=== PATIENT | female | born 1985 | race Caucasian/White ===

== ENCOUNTER 2020-04-11 12:53 | Emergency (ER) | payer OTHER, SELFPAY ==
[2020-04-11] VITALS (14 sets, daily range): BP systolic 94–128; BP diastolic 50–66; PULSE 47–92; RESP 12–20; TEMP 36.7; O2SAT 97–98; BMI 43.2
--- NOTE | 2020-04-11 13:06 | ED.ARRPALP ---
HPI - Arrhythmia/Palpitations <DANIEL Crews - Last Filed: 04/11/20 17:42> General Chief Complaint: Arrhythmia/Palpitations Stated Complaint: cough,heart palpitations, slight SOB past week Time Seen by Provider: 04/11/20 12:56 History of Present Illness HPI narrative: 34yo female presents to the emergency department today complaining of palpitations for the past week. She states she made an appointment at the [facility] for this reason. She reports that it lab test and EKG but she has not heard any results. She was told that if the palpitations continue she should be seen in the emergency department. Patient states she has felt constant palpitations the past week and feels exhausted. She does feel short of breath with these palpitations. Patient did developed a dry cough today. Patient denies any chest pain, fevers, chills, nausea, vomiting, diarrhea, dizziness, or any other concerns. Patient states she has currently breast-feeding, her is [id number]. Patient denies taking any blood thinners or control/hormone pills. Patient denies any history of blood clots. Related Data Previous Rx's Medication Instructions Recorded metoprolol succinate 12.5 mg PO DAILY #30 tab 04/11/20 Allergies Allergy/AdvReac Type Severity Reaction Status Date / Time amoxicillin Allergy Verified 04/11/20 13:06 Penicillins Allergy Verified 04/11/20 13:06 Review of Systems <DANIEL Crews - Last Filed: 04/11/20 17:42> Review of Systems Narrative: REVIEW OF SYSTEMS: GENERAL: Denies fever or chills. HENT: No head trauma, hearing loss or sore throat. EYES: No vision changes. CARDIOVASCULAR: No chest pain or syncope. Reports palpitations, see HPI. RESPIRATORY: No shortness of breath or cough. GASTROINTESTINAL: No nausea, vomiting, diarrhea, or constipation. GENITOURINARY: No flank pain or dysuria. MUSCULOSKELETAL: No pain, weakness, or deformities. INTEGUMENTARY: No rash, lesions, or pruritus. NEURO: No numbness, tingling, memory loss, or confusion. PSYCH: No behavior or mood changes. Patient History <DANIEL Crews - Last Filed: 04/11/20 17:42> Medical History No significant medical problems (Acute) Social History Smoking Status: Never smoker Smoking Status: Never smoker Exam <DANIEL Crews - Last Filed: 04/11/20 17:42> Initial Vital Signs Initial Vital Signs: Vital Signs Temperature 98.1 F 04/11/20 13:00 Pulse Rate 92 H 04/11/20 13:00 Respiratory Rate 04/11/20 13:00 Blood Pressure 128/66 04/11/20 13:00 Pulse Oximetry 97 04/11/20 13:00 PHYSICAL EXAMINATION: GENERAL: Well groomed, alert, and cooperative. Answers questions promptly and appropriately. Vital signs noted. HENT: Normocephalic, atraumatic. Ear canals patent. Oral mucosa is pink and moist. EYES: Conjunctiva pink, sclera white, no periorbital swelling. CHEST: Normal to inspection and without deformities. CARDIOVASCULAR: S1 and S2 sounds normal. Regular rate and rhythm, no murmurs, clicks, or bruits. No pedal edema. RESPIRATORY: Normal respiratory rate, trachea midline, airway patent. No stridor, nasal flaring or accessory muscle use. Lungs are clear in all reyez without wheeze, rhonchi, or crackles. No cough observed. GASTROINTESTINAL: Bowel sounds normoactive. Abdomen is soft and non-tender. No organomegaly. MUSCULOSKELETAL: Normal gait and coordination. Equal tone and mass bilaterally. EXTREMITIES: CMS intact. Moves all extremities. SKIN: Warm, dry, soft, appropriate color for ethnicity. No lesions, rashes, or wounds. NEURO: Alert and Oriented X 3. Good coordination. No ataxia, or sensory deficits, or cognitive issues. PSYCH: Appropriate affect and mood. <Jessy Anderson DO - Last Filed: 04/12/20 06:52> Initial Vital Signs Initial Vital Signs: Vital Signs Temperature 98.1 F 04/11/20 13:00 Pulse Rate 92 H 04/11/20 13:00 Respiratory Rate 04/11/20 13:00 Blood Pressure 128/66 04/11/20 13:00 Pulse Oximetry 97 04/11/20 13:00 Scores <DANIEL Crews - Last Filed: 04/11/20 17:42> HEART Score Heart Score history: Slightly Suspicious Heart Score EKG: Normal Heart Score Age: < 45 years old Heart Score risk factors: No known risk factors Heart Score troponin: < or = to normal limit Heart Score Total: 0 PERC Score Age greater than or equal to 50 years: No Heart rate greater than or equal to 100 bpm: Yes Room Air O2 Sat less than 95%: No Unilateral leg swelling: No Recent trauma or surgery: No Hemoptysis: No Prior PE or DVT: No Hormone Use: No Total PERC Score: 1 Wells' Criteria for PE Clinical signs and symptoms of DVT: No PE is #1 Dx or equally likely: No Heart rate > 100: Yes Immobilization at least 3 days or surg in previous 4 weeks: No History of PE or DVT: No Hemoptysis: No Malignancy w/Treatment within 6 months or palliative: No Wells' PE Score total: 1.5 Course <AllisonDANIEL Mclain - Last Filed: 04/11/20 17:42> Course Course Narrative: 1420: Upon re-evaluation, patient reported feeling less palpitations, states she occasionally feels lightheaded at this time. Patient has notable decreased PVCs on monitor, appears to have a PVC every 8-10 beats versus bigeminy initially seen on EKG. Metoprolol 2.5mg ordered to see if this will affect symptoms, fluids continued. 1534: Patient reported significantly improved symptoms, palpitations are less significant and less frequent. Dizziness has resolved. Orders Ordered: Discontinued Medications Aspirin (Aspirin Chew) 324 mg PO NOW ONE Stop: 04/11/20 13:06 Last Admin: 04/11/20 13:41 Dose: 324 mg Documented by: SYLVESTER Sodium Chloride (Normal Saline 0.9%) 1,000 mls @ 1,000 mls/hr IV BOLUS ONE Stop: 04/11/20 14:04 Last Infusion: 04/11/20 14:43 Dose: 0 mls/hr Documented by: Admin: 04/11/20 13:40 Dose: 1,000 mls/hr Documented by: SYLVESTER Metoprolol Tartrate (Lopressor) 2.5 mg IV NOW ONE Stop: 04/11/20 14:26 Last Admin: 04/11/20 15:07 Dose: 2.5 mg Documented by: SYLVESTER Reevaluation(s) Reevaluation #1: Patient staffed with Dr. Anderson, discussed test, test results, plan of care. Vital Signs Vital signs: Vital Signs - 8 hr 04/11/20 13:00 04/11/20 13:01 04/11/20 13:02 Temperature 98.1 F Pulse Rate 92 H 47 L 56 L Respiratory Rate 20 Blood Pressure 128/66 128/66 Pulse Oximetry 97 98 98 04/11/20 13:30 04/11/20 13:31 04/11/20 14:00 Temperature Pulse Rate 79 81 74 Respiratory Rate 18 17 16 Blood Pressure 109/57 L Pulse Oximetry 97 97 97 04/11/20 14:01 04/11/20 14:24 04/11/20 14:30 Temperature Pulse Rate 76 79 72 Respiratory Rate 16 20 15 Blood Pressure 99/57 L 116/66 Pulse Oximetry 97 98 97 04/11/20 14:31 04/11/20 15:00 04/11/20 15:07 Temperature Pulse Rate 74 74 76 Respiratory Rate 16 12 14 Blood Pressure 94/50 L 99/59 L 102/59 L Pulse Oximetry 97 98 98 04/11/20 15:30 04/11/20 15:31 Temperature Pulse Rate 65 72 Respiratory Rate 12 14 Blood Pressure 96/54 L Pulse Oximetry 97 97 <Jessy Anderson, DO - Last Filed: 04/12/20 06:52> Orders Ordered: Discontinued Medications Aspirin (Aspirin Chew) 324 mg PO NOW ONE Stop: 04/11/20 13:06 Last Admin: 04/11/20 13:41 Dose: 324 mg Documented by: SYLVESTER Sodium Chloride (Normal Saline 0.9%) 1,000 mls @ 1,000 mls/hr IV BOLUS ONE Stop: 04/11/20 14:04 Last Infusion: 04/11/20 14:43 Dose: 0 mls/hr Documented by: Admin: 04/11/20 13:40 Dose: 1,000 mls/hr Documented by: SYLVESTER Metoprolol Tartrate (Lopressor) 2.5 mg IV NOW ONE Stop: 04/11/20 14:26 Last Admin: 04/11/20 15:07 Dose: 2.5 mg Documented by: SYLVESTER Vital Signs Vital signs: Vital Signs - 8 hr 04/11/20 13:00 04/11/20 13:01 04/11/20 13:02 Temperature 98.1 F Pulse Rate 92 H 47 L 56 L Respiratory Rate 20 Blood Pressure 128/66 128/66 Pulse Oximetry 97 98 98 04/11/20 13:30 04/11/20 13:31 04/11/20 14:00 Temperature Pulse Rate 79 81 74 Respiratory Rate 18 17 16 Blood Pressure 109/57 L Pulse Oximetry 97 97 97 04/11/20 14:01 04/11/20 14:24 04/11/20 14:30 Temperature Pulse Rate 76 79 72 Respiratory Rate 16 20 15 Blood Pressure 99/57 L 116/66 Pulse Oximetry 97 98 97 04/11/20 14:31 04/11/20 15:00 04/11/20 15:07 Temperature Pulse Rate 74 74 76 Respiratory Rate 16 12 14 Blood Pressure 94/50 L 99/59 L 102/59 L Pulse Oximetry 97 98 98 04/11/20 15:30 04/11/20 15:31 Temperature Pulse Rate 65 72 Respiratory Rate 12 14 Blood Pressure 96/54 L Pulse Oximetry 97 97 MDM - Arrhythmia/Palpitations <DANIEL Crews - Last Filed: 04/11/20 17:42> Medical Records Attestation: I reviewed the patient's medical records. Lab Data Attestation: I reviewed the patient's lab results. Result diagrams: 04/11/20 13:05 04/11/20 13:05 Labs: Lab Results 04/11/20 04/11/20 04/11/20 Range/Units 13:05 13:05 13:05 WBC 8.1 (4.5-11.0) X10^3/uL RBC 4.89 (4.0-5.2) X10^6/uL Hgb 13.9 (12.0-16.0) g/dL Hct 41.1 (36-46) % MCV 84.1 (80-100) fL MCH 28.5 (26-34) PG MCHC 33.9 (30-36) % RDW 14.3 (11.6-14.8) % Plt Count 406 H (150-400) X10^3/uL Neut % (Auto) 58.8 (50-75) % Lymph % (Auto) 32.2 (25-40) % Cross % (Auto) 5.6 (3-14) % Eos % (Auto) 3.2 (2-4) % Baso % (Auto) 0.2 (0-2) % Neut # (Auto) 4700 (2671-1975) /uL Lymph # (Auto) 2600 (2252-2488) /uL Cross # (Auto) 500 (0-900) /uL Eos # (Auto) 300 (0-450) /uL Baso # (Auto) 0 (0-100) /uL D-Dimer < 200 (<230) ng/mL Sodium 136 L (137-145) mmol/L Potassium 4.5 (3.4-5.1) mmol/L Chloride 104 (98-107) mmol/L Carbon Dioxide 24 (22-32) mmol/L BUN 14 (7-17) mg/dL Creatinine 0.58 (0.52-1.04) mg/dL Estimated GFR > 60.0 (>60) mL/min BUN/Creatinine Ratio 24.1 H (6-22) Glucose 105 H (70-100) mg/dL Calcium 9.4 (8.4-10.2) mg/dL Total Bilirubin 0.5 (0.2-1.3) mg/dL AST 26 (14-36) IU/L ALT 24 (<35) IU/L Alkaline Phosphatase 72 (38-126) U/L Total Creatine Kinase 54 (30-135) U/L CK-MB (CK-2) TNP CK-MB (CK-2) Rel Index TNP Troponin I < 0.012 (0.01-0.034) ng/mL Total Protein 8.1 (6.3-8.2) g/dL Albumin 4.5 (3.5-5.0) g/dL Globulin 3.6 (1.7-4.1) g/dL Albumin/Globulin Ratio 1.3 (1.0-2.8) Lipase 29 (23-300) U/L TSH (0.47-4.68) uIU/mL COVID-19 PCR (Negative) 04/11/20 04/11/20 Range/Units 13:13 14:42 WBC (4.5-11.0) X10^3/uL RBC (4.0-5.2) X10^6/uL Hgb (12.0-16.0) g/dL Hct (36-46) % MCV (80-100) fL MCH (26-34) PG MCHC (30-36) % RDW (11.6-14.8) % Plt Count (150-400) X10^3/uL Neut % (Auto) (50-75) % Lymph % (Auto) (25-40) % Cross % (Auto) (3-14) % Eos % (Auto) (2-4) % Baso % (Auto) (0-2) % Neut # (Auto) (6214-6224) /uL Lymph # (Auto) (4018-2270) /uL Cross # (Auto) (0-900) /uL Eos # (Auto) (0-450) /uL Baso # (Auto) (0-100) /uL D-Dimer (<230) ng/mL Sodium (137-145) mmol/L Potassium (3.4-5.1) mmol/L Chloride (98-107) mmol/L Carbon Dioxide (22-32) mmol/L BUN (7-17) mg/dL Creatinine (0.52-1.04) mg/dL Estimated GFR (>60) mL/min BUN/Creatinine Ratio (6-22) Glucose (70-100) mg/dL Calcium (8.4-10.2) mg/dL Total Bilirubin (0.2-1.3) mg/dL AST (14-36) IU/L ALT (<35) IU/L Alkaline Phosphatase (38-126) U/L Total Creatine Kinase (30-135) U/L CK-MB (CK-2) CK-MB (CK-2) Rel Index Troponin I (0.01-0.034) ng/mL Total Protein (6.3-8.2) g/dL Albumin (3.5-5.0) g/dL Globulin (1.7-4.1) g/dL Albumin/Globulin Ratio (1.0-2.8) Lipase (23-300) U/L TSH 1.87 (0.47-4.68) uIU/mL COVID-19 PCR Negative (Negative) Imaging Data Chest x-ray: Radiologist's Impresson: [address] [address] XRay Report Signed Patient: Vale Allen LMR#: [id number] : 1985Acct:[id number] Age/Sex: 34 / FDate of Service: 04/11/20 Loc: ED Accession Number: [id number] Procedure: XR chest 1V Ordering Provider: Allison Vergara PROCEDURE: XR CHEST 1V INDICATIONS: Palpitations TECHNIQUE: One view of the chest was acquired. COMPARISON: None. FINDINGS: Surgical changes and devices: EKG leads project over the chest. Lungs and pleura: Lungs are clear. No pleural effusions or pneumothorax. Mediastinum: Mediastinal contours appear normal. Heart size is normal. Bones and chest wall: No suspicious bony lesions. Overlying soft tissues appear unremarkable. IMPRESSION: No acute cardiopulmonary process demonstrated radiographically. Dictated by: Eddie Reyes M.D. on 04/11/2020 at 13:43 Approved by: Eddie Reyes M.D. on 04/11/2020 at 13:43 ECG Data Interpretation: 1307: Sinus rhythm, rate 79, UT interval 163, QTC 410. Frequent PVCs initially bigeminy, then a PVC every 4-[address] elevation or ST depression. No T-wave inversion. EKG also viewed by Dr. Anderson. [facility] Narrative Medical decision making narrative: 34-year-old female presents to the emergency department for palpitations for the past week. She was recently seen at her primary care provider's office and had labs drawn but were not informed about results. I suspect patient's symptoms are most likely caused by frequent PVCs is seen on EKG and heart monitor. 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 Patient's symptoms significantly improved and episodes of PVCs decreased after administration of 2.5 mg of metoprolol and 1 L of normal saline. Less likely ACS due to lack of symptoms such as chest pain, EKG without acute changes such as ST elevation or ST depression, troponin within normal limits. Low risk factors. Heart score of 0. Less likely PE due to low well's criteria score, negative D-dimer. No history of hormonal therapy or history of PEs or DVTs. Differential also includes COVID-19, although less likely due to appearance of frequent PVCs which is the most likely explanation of palpitations. However, given patient's cough and shortness of breath she was swabbed for COVID-19 and instructed to remain in quarantine until test results have returned. Less likely acute infection due to clear chest x-ray, lack of fevers, no suspicious source of infection, and lack of other concerning symptoms such as crackles or wheezes. Discussed with patient that metoprolol as approved to use with . Patient was discharged with low-dose oral metoprolol. In the emergency department, patient's blood pressure was on the lower side of normal, however, she tolerated the medication well. She was encouraged to follow up with her primary care provider scheduled tomorrow. Strict return precautions given for new or worsening symptoms. Patient agreed to plan of care verbalized understanding. <Jessy Anderson, - Last Filed: 04/12/20 06:52> Lab Data Labs: Lab Results 04/11/20 04/11/20 04/11/20 Range/Units 13:05 13:05 13:05 WBC 8.1 (4.5-11.0) X10^3/uL RBC 4.89 (4.0-5.2) X10^6/uL Hgb 13.9 (12.0-16.0) g/dL Hct 41.1 (36-46) % MCV 84.1 (80-100) fL MCH 28.5 (26-34) PG MCHC 33.9 (30-36) % RDW 14.3 (11.6-14.8) % Plt Count 406 H (150-400) X10^3/uL Neut % (Auto) 58.8 (50-75) % Lymph % (Auto) 32.2 (25-40) % Cross % (Auto) 5.6 (3-14) % Eos % (Auto) 3.2 (2-4) % Baso % (Auto) 0.2 (0-2) % Neut # (Auto) 4700 (8026-5642) /uL Lymph # (Auto) 2600 (7395-9503) /uL Cross # (Auto) 500 (0-900) /uL Eos # (Auto) 300 (0-450) /uL Baso # (Auto) 0 (0-100) /uL D-Dimer < 200 (<230) ng/mL Sodium 136 L (137-145) mmol/L Potassium 4.5 (3.4-5.1) mmol/L Chloride 104 (98-107) mmol/L Carbon Dioxide 24 (22-32) mmol/L BUN 14 (7-17) mg/dL Creatinine 0.58 (0.52-1.04) mg/dL Estimated GFR > 60.0 (>60) mL/min BUN/Creatinine Ratio 24.1 H (6-22) Glucose 105 H (70-100) mg/dL Calcium 9.4 (8.4-10.2) mg/dL Total Bilirubin 0.5 (0.2-1.3) mg/dL AST 26 (14-36) IU/L ALT 24 (<35) IU/L Alkaline Phosphatase 72 (38-126) U/L Total Creatine Kinase 54 (30-135) U/L CK-MB (CK-2) TNP CK-MB (CK-2) Rel Index TNP Troponin I < 0.012 (0.01-0.034) ng/mL Total Protein 8.1 (6.3-8.2) g/dL Albumin 4.5 (3.5-5.0) g/dL Globulin 3.6 (1.7-4.1) g/dL Albumin/Globulin Ratio 1.3 (1.0-2.8) Lipase 29 (23-300) U/L TSH (0.47-4.68) uIU/mL COVID-19 PCR (Negative) 04/11/20 04/11/20 Range/Units 13:13 14:42 WBC (4.5-11.0) X10^3/uL RBC (4.0-5.2) X10^6/uL Hgb (12.0-16.0) g/dL Hct (36-46) % MCV (80-100) fL MCH (26-34) PG MCHC (30-36) % RDW (11.6-14.8) % Plt Count (150-400) X10^3/uL Neut % (Auto) (50-75) % Lymph % (Auto) (25-40) % Cross % (Auto) (3-14) % Eos % (Auto) (2-4) % Baso % (Auto) (0-2) % Neut # (Auto) (0245-2388) /uL Lymph # (Auto) (1247-2147) /uL Cross # (Auto) (0-900) /uL Eos # (Auto) (0-450) /uL Baso # (Auto) (0-100) /uL D-Dimer (<230) ng/mL Sodium (137-145) mmol/L Potassium (3.4-5.1) mmol/L Chloride (98-107) mmol/L Carbon Dioxide (22-32) mmol/L BUN (7-17) mg/dL Creatinine (0.52-1.04) mg/dL Estimated GFR (>60) mL/min BUN/Creatinine Ratio (6-22) Glucose (70-100) mg/dL Calcium (8.4-10.2) mg/dL Total Bilirubin (0.2-1.3) mg/dL AST (14-36) IU/L ALT (<35) IU/L Alkaline Phosphatase (38-126) U/L Total Creatine Kinase (30-135) U/L CK-MB (CK-2) CK-MB (CK-2) Rel Index Troponin I (0.01-0.034) ng/mL Total Protein (6.3-8.2) g/dL Albumin (3.5-5.0) g/dL Globulin (1.7-4.1) g/dL Albumin/Globulin Ratio (1.0-2.8) Lipase (23-300) U/L TSH 1.87 (0.47-4.68) uIU/mL COVID-19 PCR Negative (Negative) Discharge Plan Departure Patient Disposition: Home Clinical Impression: Palpitations, Frequent PVCs Discharge Date/Time: 04/11/20 15:38 Instructions: Premature Ventricular Beats, DI for Arrhythmias Activity Restrictions/Additional Instructions: Thank you for entrusting me with your care today. As discussed, your cardiac rhythm shows frequent PVCs, I suspect this is what is causing your symptoms. Your laboratory work including your thyroid hormone, and your chest x-ray are non-remarkable. I have given you a small dose of metoprolol. Please change positions slowly as this can make you dizzy if you stand up too quickly. Drink lots of water. Follow-up with your primary care provider tomorrow as scheduled. Return emergency department for any new or worsening symptoms such as chest pain, shortness of breath, dizziness, syncope, or any other concerns. You have been tested for COVID-19. This test may take -3 days for results to return, we will call you with these results. Please remain in quarantine with self isolation at home until test results are complete. Drink lots of fluids, take Tylenol for fever, get extra rest, clean all surfaces, cover your cough, wash your hands frequently, and avoid sharing any personal items. If you need to seek medical care, please call the clinic or the emergency department before your arrival. Prescriptions: New metoprolol succinate 25 mg tablet extended release 24 hr 12.5 mg PO DAILY Qty: 30 RF: 0 <Jessy Anderson DO - Last Filed: 04/12/20 06:52> Cosign ED Attending Marquiseature Attestation: I was immediately available in the department for consultation. Documentation has been reviewed. I agree with assessment and plan.
[2020-04-11 13:15] LABS: Add Manual Diff / Slide Review NO; Basophils Absolute Auto 0 /uL (0-100); Basophils Percent Auto 0.2 % (0-2); Eosinophils Absolute Auto 300 /uL (0-450); Eosinophils Percent Auto 3.2 % (2-4); Hematocrit 41.1 % (36-46); Hemoglobin 13.9 g/dL (12.0-16.0); Lymphocytes Absolute Auto 2600 /uL (1100-4500); Lymphocytes Percent Auto 32.2 % (25-40); Mean Corpuscular HGB Conc 33.9 % (30-36); Mean Corpuscular Hemoglobin 28.5 PG (26-34); Mean Corpuscular Volume 84.1 fL (80-100); Monocytes Absolute Auto 500 /uL (0-900); Monocytes Percent Auto 5.6 % (3-14); Neutrophils Absolute Auto 4700 /uL (1500-7000); Neutrophils Percent Auto 58.8 % (50-75); Platelet Count 406 X10^3/uL (150-400); Red Blood Cell Count 4.89 X10^6/uL (4.0-5.2); Red Cell Distribution Width 14.3 % (11.6-14.8); White Blood Cell Count 8.1 X10^3/uL (4.5-11.0)
[2020-04-11 13:26] LABS: Alanine Aminotransferase 24 IU/L (<35); Albumin 4.5 g/dL (3.5-5.0); Albumin Globulin Ratio 1.3 (1.0-2.8); Alkaline Phosphatase 72 U/L (38-126); Aspartate Aminotransferase 26 IU/L (14-36); BUN Creatinine Ratio 24.1 (6-22); Bilirubin Total 0.5 mg/dL (0.2-1.3); Blood Urea Nitrogen 14 mg/dL (7-17); Calcium 9.4 mg/dL (8.4-10.2); Carbon Dioxide 24 mmol/L (22-32); Chloride 104 mmol/L (98-107); Creatine Kinase 54 U/L (30-135); Estimated Glomerular Filt Rate > 60.0 mL/min (>60); Globulin 3.6 g/dL (1.7-4.1); Glucose 105 mg/dL (70-100); HEMOLYSIS < 15 (0-50); Lipase 29 U/L (23-300); Potassium 4.5 mmol/L (3.4-5.1); Sodium 136 mmol/L (137-145); Total Protein 8.1 g/dL (6.3-8.2)
[2020-04-11 13:27] LABS: D Dimer < 200 ng/mL (<230)
[2020-04-11 13:38] LABS: Troponin I < 0.012 ng/mL (0.01-0.034)
[2020-04-11] MEDS: SODIUM CHLORIDE 0.9% 1,000 ML 1000 ML IV (13:40)
[2020-04-11] MEDS: ASPIRIN 81 MG CHEW TAB 324 MG PO (13:41)
[2020-04-11 14:08] LABS: Thyroid Stimulating Hormone 1.87 uIU/mL (0.47-4.68)
[2020-04-11] MEDS: METOPROLOL TARTRATE 5 MG/5 ML INJ 2.5 MG IV (15:07)
[2020-04-11 16:22] LABS: COVID19 -Nasal RAPID Negative (Negative)
== END 2020-04-11 15:38 | disposition home or self-care (01) ==
PROVIDERS: Emergency Provider Nurse Practitioner
DX: R00.2 Palpitations (principal); I49.3 Ventricular premature depolarization; R06.02 Shortness of breath; R05 Cough
CPT/HCPCS: 36415; 71045; 80053; 82550; 83690; 84443; 84484; 85025; 85379; 87635; 93005; 96361; 96374; 99285